=== PATIENT | female | born 1985 | race Hispanic/Latino ===

== ENCOUNTER 2021-11-28 18:08 | Emergency (ER) | payer OTHER ==
[~2021-11-28] VITALS: Ht 160 cm; Wt 70.3 kg
[2021-11-28 18:09] VITALS: BP 109/62
== END 2021-11-28 20:07 | disposition left against medical advice (07) ==
LOC: EDH 18:08
DX: R07.89 Other chest pain (principal); Z53.21 Procedure and treatment not carried out due to patient leaving prior to being seen by health care provider
CPT/HCPCS: 71046; 71101

== ENCOUNTER 2025-07-26 11:59 | Emergency (ER) | payer SELFPAY ==
[~2025-07-26] VITALS: Ht 162.6 cm; Wt 75.3 kg
[2025-07-26 12:01] VITALS: BP 119/83; PULSE 64; RESP 20; TEMP 97.8
[2025-07-26] MEDS ORDERED: CIPOTIC OTIC (12:07)
--- NOTE | 2025-07-26 12:10 | ERN ---
ED Note History of Present Illness Stated Complaint: LT EARACHE Chief Complaint: Earache Time Seen by MD: 12:01 Dictation: PATIENT IS A 40-YEAR-OLD FEMALE COMING IN TODAY WITH BILATERAL EAR PAIN, WORSE ON THE LEFT SHE HAS HAD FOR 2-3 DAYS. SHE STATES SHE HAD USED AN EAR WAX REMOVAL KIT AND THEN WAS SCRAPING IN THE INSIDE OF THE EAR WITH A TOOL. FEVER NO FEVER NO CHILLS NO MASTOID PAIN NO HEADACHE. Allergies: Coded Allergies: No Known Drug Allergies (Unverified Allergy, Unknown, 11/28/21) Past Medical History Past Medical History: Anxiety, Bipolar, Depression, Other Additional Past Medical Hx: MENTAL ISSUES Surgical History: None History: Not Applicable RN Note Reviewed/Agreed w/PFSH: Yes Review of System Dictation CONSTITUTIONAL: NEGATIVE EXCEPT FOR HPI HEAD/FACE: NEGATIVE EXCEPT FOR HPI EENT: NEGATIVE EXCEPT FOR HPI BILATERAL EAR PAIN GREATER ON THE LEFT RESPIRATORY: NEGATIVE EXCEPT FOR HPI GASTROINTESTINAL/ABDOMINAL: NEGATIVE EXCEPT FOR HPI GENITOURINARY: NEGATIVE EXCEPT FOR HPI MUSCULOSKELETAL: NEGATIVE EXCEPT FOR HPI INTEGUMENTARY: NEGATIVE EXCEPT FOR HPI NEUROLOGICAL/PSYCH: NEGATIVE EXCEPT FOR HPI HEMATOLOGIC/LYMPHATIC: NEGATIVE EXCEPT FOR HPI ALL SYSTEMS NEGATIVE, EXCEPT NOTED ABOVE. 13 POINT REVIEW OF SYSTEMS ASSESSED AND ALL NEGATIVE EXCEPT FOR ABOVE. Physical Exam Dictation VITAL SIGNS REVIEWED GENERAL APPEARANCE: ALERT, ORIENTED X 3, NO ACUTE DISTRESS, WELL DEVELOPED, NOURISHED. HEAD AND FACE: NON-TRAUMATIC. EYES: PERRL, PINK CONJUNCTIVAS, EYELID NO TRAUMA, ANTERIOR CHAMBER WITH ARCUS SENILIS. EARS: PINNAS INTACT AND NO SIGNS OF TRAUMA TMS INTACT BILATERALLY. PATIENT HAS ERYTHEMA TENDERNESS TO BILATERAL OTIC CANALS, GREATER ON THE LEFT. NEGATIVE MASTOID TENDERNESS BILATERALLY NOSE: NO DISCHARGE, NO BLEEDING. OROPHARYNX: MOUTH NORMAL, TONGUE PINK, PHARYNX CLEAR,NO ERYTHEMA, TONSILS NO EXUDATES, NO ABSCESSES NOTED, MUCOUS MEMBRANE MOIST NECK: SUPPLE, NON-TENDER, NO THYROMEGALY, NO MASSES, NO JVD, NO BRUITS BREAST:DEFERRED CHEST:NO TENDERNESS, NO CREPITUS, NO PARADOXICAL MOVEMENT, NO RETRACTIONS LUNGS:CLEAR, WELL-VENTILATED, SYMMETRIC, NO RALES, NO WHEEZING, NO RHONCHI, NO STRIDOR, GOOD BREATH SOUNDS BILATERALLY HEART: REGULAR RATE, REGULAR RHYTHM, NO MURMUR, NO GALLOPS VASCULAR: NO PERIPHERAL EDEMA, ABDOMEN: SOFT, POSITIVE BOWEL SOUNDS, NONDISTENDED, NO GUARDING, NONTENDER, NO REBOUND, NO MASSES NO HEPATOMEGALY, NO SPLENOMEGALY, NO SAUCEDA'S SIGN, NO HERNIAS. RECTAL: DEFERRED GENITAL: DEFERRED NEUROLOGICAL: NORMAL SPEECH, MOTOR FUNCTION INTACT, SENSORY FUNCTION INTACT MUSCULOSKELETAL: NECK NONTENDER, FULL RANGE OF MOTION, BACK NONTENDER, FULL RANGE OF MOTION, EXTREMITIES: NONTENDER, FULL RANGE OF MOTION SKIN: COLOR PINK, DRY, NO TURGOR, NO RASH, NO LACERATIONS, NO ABRASIONS, NO CONTUSIONS. LYMPHATIC: DEFERRED Results (Laboratory/Radiology) Labs Reviewed?: Yes ED Course ED Course 1205/NO LABS OR IMAGING INDICATED. PATIENT WILL BE TREATED EMPIRICALLY Medical Decision Making MDM MEDICAL DECISION-MAKING BASED ON HPI AND PHYSICAL EXAMINATION. NO LABS OR IMAGING INDICATED FOR EMPIRIC TREATMENT OF OTITIS EXTERNA PATIENT WILL BE PRESCRIBED CIPROFLOXACIN HC DROPS GIVEN INSTRUCTIONS NO FOREIGN BODIES TO EARS SEE YOUR PRIMARY CARE DOCTOR FOR FOLLOW UP DX & DISP Disposition: Discharge Departure Impression: Primary Impression: Bilateral otitis externa Condition: Stable Scripts Ciprofloxacin HCl/Hc (Cipro Hc Otic Susp) 0.2 %-1 % Otsus 3 DROP OTIC BID for 7 Days, #10 ML 0 Refills THREE DROPS EACH EAR 2TIMES A DAY FOR SEVEN DAYS. USE COTTON BALL WITH THE APPLICATION Prov: ISIS CRUZ 07/26/25 Additional Instructions: FOLLOW-UP WITH PRIMARY CARE PROVIDER IN 1 TO 2 DAYS. TAKE MEDICATIONS DIRECTED HERE IN THE EMERGENCY ROOM. OKAY TO CONTINUE HOME MEDICATIONS UNLESS OTHERWISE DISCUSSED DURING YOUR VISIT IN THE EMERGENCY ROOM TODAY. RETURN TO YOUR NEAREST EMERGENCY ROOM IF SYMPTOMS WORSEN OR IF THERE IS NO IMPROVEMENT. CALL 911 IF YOU NEED IMMEDIATE ASSISTANCE. TAKE TYLENOL OR MOTRIN [id number] NEEDED AND IF NO CONTRAINDICATIONS ARE PRESENT. INCREASE ORAL HYDRATION. A WOUND CULTURE OR URINE CULTURE WAS ORDERED HERE IN THE EMERGENCY ROOM DEPARTMENT PLEASE FOLLOW-UP WITH PRIMARY CARE PROVIDER AND ADVISE THEM TO GET REPEAT PORTS FROM OUR FACILITY. IF YOU HAD ANY RICARDO WRAP/SPLINTS THAT WERE APPLIED HERE, PLEASE DO NOT REMOVE THEM UNTIL YOU SEE YOUR PRIMARY CARE OR SPECIALTY. NO FOREIGN BODIES TO EARS AND NO Q-TIPS. USE ANTIBIOTIC DROPS DIRECTED WITH COTTON BALLS. TYLENOL [id number] NEEDED FOR PAIN. SEE YOUR PRIMARY CARE DOCTOR FOR REFERRAL TO [facility] NOSE AND THROAT SPECIALIST Referrals: SELF,REFERRAL (PCP) Time of Disposition: 12:06 I have reviewed the case, and I agree with, Diagnosis and Plan ISIS CRUZ [facility] Jul 26, 2025 12:10
== END 2025-07-26 13:15 | disposition home or self-care (01) ==
LOC: EDH 11:59
DX: H60.93 Unspecified otitis externa, bilateral (principal); F31.9 Bipolar disorder, unspecified; F41.9 Anxiety disorder, unspecified
CPT/HCPCS: 99283